=== PATIENT | female | born 1980 | race Caucasian/White ===

== ENCOUNTER 2021-01-23 05:07 | Emergency (ER) | payer MEDICAID ==
[~2021-01-23] VITALS: Ht 170.2 cm; Wt 165.0 kg
--- NOTE | 2021-01-23 05:23 | NUR ---
bib ems from home. pt having left sided chest pain that radiates to her shoulder since 30 min before calling 911. pt stated taking 4 chewable baby asprin at home. pt given nitro 1 time enroute and 2 mg morphine. pt states pain is 6/10 at this time. pt states pain is worse when deep breathing. pt placed on all monitors, ekg taken at bedside. erp at bedside at this time
[2021-01-23] MEDS ORDERED: HYDROmorphone 1 MG/ML, 1ML INJ IV ONE (05:30)
[2021-01-23] MEDS ORDERED: HYDROmorphone 1 MG/ML, 1ML INJ ONE (05:34)
[2021-01-23 05:47] LABS: BASOPHILS % (AUTO) 1 % (0-1); EOSINOPHILS % (AUTO) 2 % (1-7); LYMPHOCYTES % (AUTO) 29 % (22-44); MEAN CORPUSCULAR HEMOGLOBIN 20.7 pg (27.0-34.8); MEAN CORPUSCULAR HGB CONC 30.8 g/dL (32.4-35.8); MEAN PLATELET VOLUME 7.3 fL (7.4-10.4); MONOCYTES % (AUTO) 9 % (2-9); NEUTROPHILS % (AUTO) 59 % (42-75); PLATELET COUNT 445 x10^3/uL (130-400); RED BLOOD COUNT 5.68 x10^6/uL (3.82-5.3); RED CELL DISTRIBUTION WIDTH 18.6 % (9.6-15.2)
[2021-01-23 05:51] LABS: MD NO
[2021-01-23 05:56] LABS: ALANINE AMINOTRANSFERASE 25 U/L (12-78); ALBUMIN 3.2 g/dL (3.4-5.0); ANION GAP 4 mmol/L (5-15); CALCIUM 8.8 mg/dL (8.5-10.1); CHLORIDE 105 mmol/L (98-107); CREATININE 0.72 mg/dL (0.55-1.02)
[2021-01-23 06:01] LABS: ALKALINE PHOSPHATASE 63 U/L (45-117); BILIRUBIN,TOTAL 0.3 mg/dL (0.2-1.0); TOTAL PROTEIN 7.7 g/dL (6.4-8.2); TROPONIN I < 0.015 ng/mL (0.000-0.045)
--- NOTE | 2021-01-23 06:36 | NUR ---
REPORT TO AILYN GONZALES. PT MOVED TO ROOM 4. 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 NO OTHER NEEDS AT THIS TIME
--- NOTE | 2021-01-23 06:42 | NUR ---
BEDSIDE REPORT FROM NYASIA ROBERTSON, PT CARE TRANSFERRED AT THIS TIME. PT NAD, MOVED TO ROOM 4, PROVIDED WATER AND ICE CHIPS FOR COMFORT, FRIEND AT BS, NO CHANGE IN CONDITION, BED IN LOWEST, RAILS ENGAGED, CALL LIGHT ON LAP, WCTM. PT TROP TO BE RECHECKED.
--- NOTE | 2021-01-23 06:52 | NUR ---
bedside report to yaquelin blood, pt care transferred at this time.
--- NOTE | 2021-01-23 06:57 | NUR ---
REPORT TO AILYN TRONCOSO. PT LYING ON GURNEY. VISITOR AT BEDSIDE. NO NEEDS AT THIS TIME. RN TO CONTINUE TO MONITOR.
--- NOTE | 2021-01-23 07:35 | NUR ---
PT REQUESTING FOR TEMPERATURE BE TURNED DOWN IN ROOM AND PROVIDED WITH AN ICE PACK. RN COMPLETED THESE TASKS.
[2021-01-23 08:50] LABS: TROPONIN I < 0.015 ng/mL (0.000-0.045)
--- NOTE | 2021-01-23 09:05 | NUR ---
PT UP FOR RECHECK BY ERMD. PT RESTING COMFORTABLY. NO NEEDS.
[2021-01-23 09:12] VITALS: BP 130/60
--- NOTE | 2021-01-23 09:26 | NUR ---
PT BEING DISCHARGED HOME IN A STABLE CONDITION. DC INSTRUCTIONS DISCUSSED WITH PT. PIV WAS REMOVED WITH TIP INTACT. PT VERBALIZED UNDERSTANDING. NO FURTHER QUESTIONS OR CONCERNS EXPRESSED. PT TRYING TO ARRANGE TRANSPORTATION. PT O2 DEPENDENT IN 2LNC. AWAITING TO HEAR UPDATES ON RIDE.
== END 2021-01-23 09:58 | disposition home or self-care (01) ==
LOC: ED 06:16 → UNDOADMOB 06:29 → EDIP 06:29 → ED 09:58
DX: R07.89 Other chest pain (principal); R94.31 Abnormal electrocardiogram [ECG] [EKG]; I11.0 Hypertensive heart disease with heart failure; I50.9 Heart failure, unspecified; Z90.49 Acquired absence of other specified parts of digestive tract; E11.9 Type 2 diabetes mellitus without complications
CPT/HCPCS: 36415; 71045; 80053; 84484; 85025; 93005; 96374; 99285; J1170